=== PATIENT | male | born 2000 | race Hispanic/Latino ===

== ENCOUNTER 2021-12-14 13:05 | Emergency (ER) | payer OTHER ==
[~2021-12-14] VITALS: Ht 180.3 cm; Wt 102.1 kg
[2021-12-14] MEDS ORDERED: TETANUS/DIPHTHERIA TOXOID [ADULT] 0.5 ML VIAL IM ONE (14:00)
[2021-12-14] MEDS ORDERED: ACETAMINOPHEN 500 MG TABLET PO ONE (14:00)
[2021-12-14] MEDS ORDERED: LIDOCAINE HCL MPF 1% 5ML VIAL ONE (14:37)
[2021-12-14] MEDS ORDERED: CEPH500B PO (15:26)
[2021-12-14 16:11] VITALS: BP 122/74
== END 2021-12-14 16:17 | disposition home or self-care (01) ==
LOC: EDH 13:05
DX: S61.012A Laceration without foreign body of left thumb without damage to nail, initial encounter (principal); Z90.49 Acquired absence of other specified parts of digestive tract; X58.XXXA Exposure to other specified factors, initial encounter; Y93.89 Activity, other specified; Y92.89 Other specified places as the place of occurrence of the external cause; Y99.8 Other external cause status
CPT/HCPCS: 12001; 73120; 90471; 90714; 99283; J3490